=== PATIENT | female | born 1950 | race Caucasian/White ===

== ENCOUNTER 2023-12-01 11:30 | Emergency (ER) | payer SELFPAY ==
[2023-12-01 11:37] VITALS: BP 150/68
[2023-12-01 12:00] VITALS: BP 148/60
--- NOTE | 2023-12-01 12:17 | ED.GENMED ---
History of Present Illness
General
Chief Complaint: Musculo-Skeletal Complaint
Source: patient and [facility] records
Exam Limitations: none
Time Seen by Provider: 12/01/23 11:38
Nursing documentation reviewed up to this point in time: agreed with
Travel History
Have you had any contact with someone who has COVID-19?: No
Do you have any symptoms of coronavirus? Fever > 100 degrees, chills, cough, shortness of breath, sore throat, loss of taste or smell, muscle aches, or headache?: No
History of Present Illness
History of Present Illness:
Patient is a 73-year-old [id number] female presents to the emergency department complaining of left elbow pain for the past week or more and during the night last night she removed a pin that was extending out of her elbow on the medial
aspect. Patient is in rehab right now. According to the patient few months ago she fell and developed a trimalleolar fracture and then subsequently fell after that approximately 4 weeks later and fractured her left elbow requiring pins. Patient
has noted a rash around the area that it has been there for approximately 1 month. Patient denies fever or chills. Patient has increasing pain. The repair was done at the [facility]. [facility].
Past History
Past History
ED Past Medical History: HTN, Hypercholesterolemia and Other (Brain aneurysm)
ED Past Surgical History: , Orthopedic (Left knee) and Other (Brain aneurysm 2000)
Social History
Tobacco: Smoker
Review of Systems
Review of Systems
All Other Systems: Not applicable
Phy Exam
Physical Exam
Physical Exam:
Physical Exam
General: mild to moderate distress, alert and appropriate, obese, well hydrated
HENT: Normocephalic, supple with no lymphadenopathy, no thyromegaly
Eyes: Clear sclera, conjuctiva without injection
Heart: Regular rhythm and rate. No S3, S4. No murmur.
Lungs: No respiratory distress, no stridor, lung sounds clear and equal bilaterally
Abdomen: Soft, nontender, BS good
Neuro: Alert and oriented x 3, CN II - XII intact, no motor focality, no cerebellar dysfunction
Skin: Erythema along the medial aspect of the left elbow as well as of the lower surface of the left forearm
Psychiatric: well kept. interactive and cooperative
Extremities: No edema, cyanosis. Good and equal peripheral pulses. Left ankle is in an boot. Diffuse tenderness of the left elbow increases with any movement but neurovascular and tendons intact
Course
Orders/Labs/Results
Orders:
Orders
12/01/23 12:15
Elbow, Left [CR Elbow - Left Min 3 Views ] Urgent
Comment:
Reason For Exam: removed pin from it during the night
12/01/23 14:22
Oxycodone/Acetaminophen [Percocet 5/325] 1 tablet PO NOW STA
12/01/23 14:31
Complete Blood Count/With Diff Urgent
Comprehensive Metabolic Panel Urgent
Sed Rate [Erythrocyte Sed Rate] Urgent
12/01/23 15:02
Sling Left-Treatment ONCE
Abnormal Lab Results
12/01/23
14:31
Hct 36.7 L %
(37.0-47.0)
Absolute Neuts (auto) 6.6 H 10^3/uL
(1.4-6.5)
Lymphocytes % 17.4 L %
(20.5-51.1)
Sodium 132 L mmol/L
(135-145)
BUN 19 H mg/dl
(7-17)
Glucose 107 H mg/dl
(70-99)
Alkaline Phosphatase 268 H U/L
(38-126)
12/01/23 14:31
12/01/23 14:31
Vital Signs
Initial and Last Documented VS:
Initial Vital Signs
Temp BP
98.6 F 150/68
12/01/23 11:37 12/01/23 11:37
Last Documented Vital Signs
Temp Pulse Resp BP Pulse Ox
98.6 F 79 20 148/60 96
12/01/23 11:37 12/01/23 12:45 12/01/23 12:45 12/01/23 12:00 12/01/23 12:45
*Radiology
Radiology exam reviewed: preliminary read by ED provider (No apparent acute changes)
*Pulse Oximetry
Patient hypoxic: no
*EKG
Interpreted by ED Provider?: NA
*Property And Supply Officer Interpretation
Rate: Property And Supply Officer- N/A
*Critical Care Note
Total Time (30-74mins, 75-104mins- exclusive of procedures): Not Applicable
Update Note
Update Note:
Will place the patient in a sling with pain management and have the patient follow-up with orthopedics.
ED Attending Note
-
Portions of this chart may have been created with voice recognition software.� Occasional wrong word or��sound alike� substitutions may have occurred due to the inherent limitations of voice recognition software.
Discharge Plan
Departure
Patient Disposition: Detention/SNF
Date of Disposition: 12/01/23
Time of Disposition: 15:04
Patient with high blood pressure during this ER visit?: No
Condition: Fair
Covid-19: Not Applicable
Discharge Problem:
Pain and swelling of left elbow, Closed fracture of left elbow with routine healing
Instructions: How to Use a Shoulder Sling, Using Cold for Pain, Elbow Fracture, Adult ED
Prescriptions:
New
oxycodone 5 mg tablet
5 mg PO Q4H PRN (Reason: Pain) Qty: 20 0RF
No Action
epinephrine [EpiPen] 0.3 MG/0.3/SYRINGE auto-injector
0.3 mg IM STAT! PRN (Reason: severe swelling, sob) Qty: 2 0RF
clindamycin HCl 300 MG capsule
300 mg PO TID Qty: 21 0RF
prednisone 50 MG tablet
50 mg PO DAILY Qty: 5 0RF
Referrals:
Catalino Mehta MD [Family Provider] - Follow up in 2-3 days
Corona Alston MD [Active] - Follow up in 2-3 days
Activity Restrictions/Additional Instructions:
[facility] then follow-up with Dr. Alston who you referred for orthopedics. Continue present medications and therapy.
Interventions
Interventions:
*Risk Screen - Suicide Last Done: 12/01/23 11:58
*General Assessment Last Done: 12/01/23 11:58
*Neglect/Abuse Screening Last Done: 12/01/23 11:58
ED- Fall Risk Assessment Last Done: 12/01/23 12:02
*ED COVID-19 Vaccine History Last Done: 12/01/23 11:58
ED-Musculoskeletal Assessment Last Done: 12/01/23 12:02
Discharge Date and Time
Print Language: IVORIAN
[2023-12-01 14:34] VITALS: BP 106/13
[2023-12-01] MEDS: PERCOCET 5/325 1 TABLET PO (14:40)
[2023-12-01 14:42] LABS: % Basophils 0.2 % (0-2); % Eosinophils 1.6 % (0-6); % Immature Granulocytes 0.3 % (0-0.5); % Lymphocytes 17.4 % (20.5-51.1); % Monocytes 7.1 % (1.7-9.3); % Neutrophils 73.4 % (42.2-75.2); Absolute Eosinophils 0.1 10^3/uL (0-0.7); Absolute Lymphocytes 1.6 10^3/uL (1.2-3.4); Absolute Monocytes 0.6 10^3/uL (0.1-0.6); Absolute Neutrophils 6.6 10^3/uL (1.4-6.5); Hematocrit 36.7 % (37.0-47.0); Hemoglobin 12.6 g/dL (12.0-16.0); Mean Corp Hgb Conc. 34.3 g/dL (33.0-37.0); Mean Corpuscular Hgb 29.6 pg (27.0-31.0); Mean Corpuscular Volume 86.4 fL (81.0-99.0); Mean Platelet Volume 9.1 fL (7.4-10.4); Nucleated Red Blood Cells % 0 %; Platelet Count 331 10^3/uL (130-400); Red Blood Cell Count 4.25 10^6/uL (4.20-5.40); Red Cell Dist. Width 13.5 % (11.5-14.5); White Blood Cell Count 8.9 10^3/uL (4.8-10.8)
[2023-12-01 14:54] LABS: ALT (SGPT) 19 U/L (0-35); AST (SGOT) 35 U/L (14-36); Albumin 3.5 g/dl (3.5-5.0); Alkaline Phosphatase 268 U/L (38-126); Blood Urea Nitrogen 19 mg/dl (7-17); Calcium 9.2 mg/dl (8.4-10.2); Carbon Dioxide 28 mmol/L (22-30); Chloride 99 mmol/L (98-107); Glucose 107 mg/dl (70-99); Potassium 4.3 mmol/L (3.5-5.1); Sodium 132 mmol/L (135-145); Total Bilirubin 0.6 mg/dl (0.2-1.3); Total Protein 6.9 g/dl (6.3-8.2); eGFR > 60.00
[2023-12-01 15:22] LABS: Erythrocyte Sed Rate 55 mm/hour (0-20)
[2023-12-01 17:45] VITALS: BP 92/60
== END 2023-12-01 18:34 ==
LOC: EMR 11:30
PROVIDERS: EMERGENCY PHYSICIAN Emergency Medicine; FAMILY PHYSICIAN Internal Medicine
DX: S42.402A Unspecified fracture of lower end of left humerus, initial encounter for closed fracture (principal); W19.XXXA Unspecified fall, initial encounter; M25.422 Effusion, left elbow; F17.200 Nicotine dependence, unspecified, uncomplicated
CPT/HCPCS: 99284; 73080; 80053; 85025; 85652